=== PATIENT | female | born 1965 | race Caucasian/White ===

== ENCOUNTER → 2021-05-31 | Outpatient (CLI) | payer OTHER ==
[~2021-05-31] MED LIST: ENOXAPARIN30 MG/0.3 SC; NORCO 10-325 T1 EACH PO; ZYRTEC10 MG PO
== END ==
LOC: KOH-I 11:54
DX: M54.50 Low back pain, unspecified (principal); R10.30 Lower abdominal pain, unspecified
CPT/HCPCS: 72100; 73522

== ENCOUNTER → 2021-06-01 | Outpatient (CLI) | payer OTHER | LOC: KOH-I 12:53 | DX: R10.32 Left lower quadrant pain (principal) | CPT/HCPCS: 93971 ==